=== PATIENT | male | born 1945 | race African-American/Black ===

== ENCOUNTER 2019-10-26 12:10 | Inpatient (IN) | payer OTHER ==
[~2019-10-26] VITALS: Ht 182.9 cm; Wt 81.6 kg
[2019-10-27] MEDS ORDERED: PHOSLO667 M1 (08:38)
[2019-10-27] MEDS ORDERED: NIFEDIPINE ER60 M1 (08:38)
[2019-10-27] MEDS ORDERED: DORZOLAMIDE-TIM10 ML (08:39)
[2019-10-27] MEDS ORDERED: TAMSULOSIN HCL0.4 MG (08:39)
[2019-10-27] MEDS ORDERED: SIMVASTATIN10 MG (08:39)
[2019-10-27] MEDS ORDERED: DORZOLAMIDE HCL10 ML (08:39)
== END 2019-11-05 11:01 | disposition home or self-care (01) | DRG 665 ==
LOC: ER 12:10 → SURG 18:19 → SEC-K 18:19 → O/R 10-27 15:18 → SURG 10-27 18:38
PROVIDERS: Surgery; ADMIT Internal Medicine; ATTEND Internal Medicine
PROC: 0TJB8ZZ Inspection of Bladder, Via Natural or Artificial Opening Endoscopic (ICD-10-PCS; 2019-10-27)
PROC: 5A1D70Z Performance of Urinary Filtration, Intermittent, Less than 6 Hours Per Day (ICD-10-PCS; 2019-10-28)
PROC: 8E0ZXY6 Isolation (ICD-10-PCS; 2019-10-28)
PROC: 0VT08ZZ Resection of Prostate, Via Natural or Artificial Opening Endoscopic (ICD-10-PCS; principal; 2019-11-03 13:00)
DX: N30.81 Other cystitis with hematuria (principal); N18.6 End stage renal disease; N11.8 Other chronic tubulo-interstitial nephritis; Z16.12 Extended spectrum beta lactamase (ESBL) resistance; I12.0 Hypertensive chronic kidney disease with stage 5 chronic kidney disease or end stage renal disease; N17.9 Acute kidney failure, unspecified; B96.1 Klebsiella pneumoniae [K. pneumoniae] as the cause of diseases classified elsewhere; E11.65 Type 2 diabetes mellitus with hyperglycemia; R31.29 Other microscopic hematuria; N40.1 Benign prostatic hyperplasia with lower urinary tract symptoms; R33.8 Other retention of urine; Z20.828 Contact with and (suspected) exposure to other viral communicable diseases; Z79.4 Long term (current) use of insulin; Z99.2 Dependence on renal dialysis

== ENCOUNTER → 2020-01-18 12:06 | Outpatient (CLI) | payer OTHER ==
[~2020-01-18 12:06] MED LIST: DORZOLAMIDE HCL10 ML; DORZOLAMIDE-TIM10 ML; NIFEDIPINE ER60 M1; PHOSLO667 M1; SIMVASTATIN10 MG; TAMSULOSIN HCL0.4 MG
== END | disposition home or self-care (01) ==
LOC: LAB 12:06
PROVIDERS: ATTEND Surgery
DX: E03.8 Other specified hypothyroidism (principal); Z12.5 Encounter for screening for malignant neoplasm of prostate; N40.1 Benign prostatic hyperplasia with lower urinary tract symptoms; B96.1 Klebsiella pneumoniae [K. pneumoniae] as the cause of diseases classified elsewhere

== ENCOUNTER → 2020-08-22 12:58 | Outpatient (CLI) | payer OTHER | END | disposition home or self-care (01) | LOC: LAB 12:58 | PROVIDERS: ATTEND Surgery | DX: N40.1 Benign prostatic hyperplasia with lower urinary tract symptoms (principal) ==

== ENCOUNTER → 2021-07-17 | Emergency (ER) | payer OTHER | END | disposition left against medical advice (07) | LOC: ER 18:20 | DX: Z53.21 Procedure and treatment not carried out due to patient leaving prior to being seen by health care provider (principal) ==